=== PATIENT | male | born 1940 | race Caucasian/White ===

== ENCOUNTER → 2022-03-14 13:51 | Outpatient (BNVA) | payer MEDICARE, SELFPAY | PROVIDERS: Family Provider Family Medicine; PCP Dermatology Procedural Dermatology; Visit Provider Emergency Medicine | DX: M25.512 Pain in left shoulder (principal); W19.XXXA Unspecified fall, initial encounter; M19.012 Primary osteoarthritis, left shoulder | CPT/HCPCS: 73030 ==

== ENCOUNTER → 2023-07-25 09:26 | Outpatient (BNVA) | payer MEDICARE, SELFPAY | PROVIDERS: Family Provider Family Medicine; PCP Family Medicine; Referring Provider Emergency Medicine; Visit Provider Family Medicine | DX: M11.261 Other chondrocalcinosis, right knee (principal); M25.561 Pain in right knee | CPT/HCPCS: 73562 ==

== ENCOUNTER 2024-02-25 13:50 | Outpatient (CLI) | payer MEDICARE, SELFPAY ==
--- NOTE | 2024-02-25 14:13 | XR_ITS ---
WS: [id number] RIGHT HAND: 3 VIEW(S) TECHNIQUE: PA, oblique and lateral. HISTORY: POLYOSTEOARTHRITIS/PAIN COMPARISON: None available. No acute fracture or dislocation. Advanced arthropathy throughout the hand and wrist. Narrowing of the interphalangeal joints. Narrowin g with partial subluxation of the tarsal metacarpals articulation. Mild overlapping of the carpal bon es with the metacarpals. No erosions in metacarpal heads. There is also partial subluxation at the se cond metacarpophalangeal joint. Foreshortening and deformity of the fourth and fifth metacarpals prob ably due to prior fractures with healing. Extensive vascular calcifications in the radial artery. XR/XR hand RT min 3V* [id number] IMPRESSION: 1. Advanced arthropathy involving the RIGHT wrist and hand. 2. Interphalangeal joint space narrowing is mild. 3. There is partial subluxation with narrowing of the carpometacarpal articula tions. There is also partial subluxation at the second metacarpal phalangeal annita int. 4. Chronic deformities fourth and fifth metacarpals from prior fractures.
--- NOTE | 2024-02-25 14:13 | XR_ITS ---
WS: [id number] Right ankle, 3 views, 02/26/2024 Clinical Data: POLYOSTEOARTHRITIS/PAIN Comparison: None. Findings: No fractures or dislocations are seen. There is narrowing of the ankle mortise with sclerotic change between the medial malleolus and the medial aspect of the talus. There is demineralization and cystic change throughout the tarsal bones. There is loss of normal definition of the articular surfaces of the tarsal bones. No soft tissue swelling over the medial or lateral malleolus is seen. XR/XR ankle RT min 3V* [id number] Impression: Diffuse osteoarthritic change involving the ankle mortise and intertarsal artic ulations.
--- NOTE | 2024-02-25 14:13 | XR_ITS ---
WS: [id number] Left hand, 3 views, 02/25/2024 Clinical Data: POLYOSTEOARTHRITIS/PAIN Comparison: None. Findings: No fractures or dislocations are seen. There is osteoarthritic change of the joints of the left hand involving the second through fifth MCP joints, PIP joints and DIP joints. There is a 0.3 cm metal fragment in the interosseous subcutaneous tissue between the first and second metacarpals. There is a minute calcification between the second and third MCP joints. There are keila articular cysts distributed throughout the bones of the wrist and fingers. There is triradiate cartil age calcification. . 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
== END 2024-02-25 13:51 | disposition home or self-care (01) ==
PROVIDERS: Family Provider Family Medicine; PCP Family Medicine; Visit Provider Family Medicine
DX: M19.031 Primary osteoarthritis, right wrist (principal); Z18.10 Retained metal fragments, unspecified; M85.642 Other cyst of bone, left hand; M19.071 Primary osteoarthritis, right ankle and foot
CPT/HCPCS: 73130; 73610

== ENCOUNTER → 2024-10-14 14:20 | Outpatient (BNVA) | payer MEDICARE, SELFPAY | PROVIDERS: Family Provider Family Medicine; PCP Family Medicine; Visit Provider Nurse Practitioner Family | DX: M54.50 Low back pain, unspecified (principal); G89.29 Other chronic pain; Z87.891 Personal history of nicotine dependence | CPT/HCPCS: 72110; 99214 ==

== ENCOUNTER → 2024-12-29 12:13 | Outpatient (BNVA) | payer MEDICARE, SELFPAY | PROVIDERS: PCP Nurse Practitioner Family; Visit Provider Nurse Practitioner Family | DX: M54.42 Lumbago with sciatica, left side (principal); G89.29 Other chronic pain | CPT/HCPCS: 99214 ==

== ENCOUNTER → 2025-01-12 12:27 | Outpatient (BNVA) | payer MEDICARE, SELFPAY | PROVIDERS: PCP Nurse Practitioner Family; Visit Provider Nurse Practitioner Family | DX: M79.18 Myalgia, other site (principal); G89.29 Other chronic pain; M54.42 Lumbago with sciatica, left side | CPT/HCPCS: 20553; 99214; J1010; J3490 ==

== ENCOUNTER → 2025-02-23 12:45 | Outpatient (BNVA) | payer MEDICARE, SELFPAY | PROVIDERS: PCP Nurse Practitioner Family; Visit Provider Nurse Practitioner Family | DX: M54.9 Dorsalgia, unspecified (principal); G89.29 Other chronic pain; M54.42 Lumbago with sciatica, left side; Z87.891 Personal history of nicotine dependence | CPT/HCPCS: 99214 ==